=== PATIENT | female | born 1990 | race Caucasian/White ===

== ENCOUNTER 2017-01-23 15:44 | Emergency (ER) | payer MEDICAID ==
[~2017-01-23] VITALS: Ht 160 cm; Wt 74.0 kg
[2017-01-23 15:51] VITALS: Ht 160 cm; Wt 74.0 kg
[2017-01-23] MEDS ORDERED: ONDANSETRON (ODT) 4 MG TAB ODT STA (16:03)
[2017-01-23 16:23] LABS: URINE BLOOD (Dip) POC Trace-lysed (NEGATIVE)
[2017-01-23 16:26] LABS: BASOPHIL # 0.1 10^3/ul (0.0-0.1); BASOPHILS % 0.6 % (0.0-2.0); EOSINOPHILS # 0.1 10^3/ul (0.0-0.5); EOSINOPHILS % 1.8 % (0.0-7.0); HEMATOCRIT 36.8 % (37.0-47.0); HEMOGLOBIN 12.1 g/dl (12.0-16.0); LYMPHOCYTES # 2.7 10^3/ul (0.8-2.9); LYMPHOCYTES % 33.8 % (15.0-51.0); MEAN CORPUSCULAR HEMOGLOBIN 30.2 pg (29.0-33.0); MEAN CORPUSCULAR HGB CONC 32.9 g/dl (32.0-37.0); MEAN CORPUSCULAR VOLUME 91.8 fl (82.0-101.0); MEAN PLATELET VOLUME 10.2 fl (7.4-10.4); MONOCYTE # 0.7 10^3/ul (0.3-0.9); MONOCYTES % 8.2 % (0.0-11.0); NEUTROPHIL # 4.4 10^3/ul (1.6-7.5); NEUTROPHILS % 55.3 % (39.0-77.0); PLATELET COUNT 208 10^3/UL (140-415); RED BLOOD COUNT 4.01 10^6/ul (4.20-5.40); RED CELL DISTRIBUTION WIDTH 12.7 % (11.5-14.5)
[2017-01-23] MEDS ORDERED: HYDROCODONE/APAP (5/325) TAB PO ONE (16:30)
--- NOTE | 2017-01-23 16:40 | RADRPT ---
PROCEDURE: US Pelvis. CLINICAL INDICATION: pelvic pain TECHNIQUE: Multiple sonographic images of the pelvis were obtained utilizing a transabdominal andres hnique. The images were reviewed on a PACS workstation. COMPARISON: None. FINDINGS: The uterus is normal in size with a normal appearance of the myometrium. The uterus measures 9.4 x 5.5 x 7.2 cm. The endometrial stripe is homogeneous in appearance and has the thickness of 11 mm. The ovaries are normal in size and echogenicity. Normal Doppler flow is identified in both ovaries. The right ovary measures 3.6 x 2.4 x 3.3 cm. The left ovary measures 3.8 x 2.1 x 2.5 cm. No free fluid is present within the pelvis. RPTAT: AA IMPRESSION: Unremarkable pelvic ultrasound. .Charles Perla MD, MD Date Time Electronically viewed and signed by .Charles Perla MD, MD on 01/23/2017 16:39 .S/
[2017-01-23 16:46] LABS: ALBUMIN 4.5 g/dl (3.3-4.9); ALBUMIN/GLOBULIN RATIO 1.36; BILIRUBIN,INDIRECT 0.1 mg/dl (0-1.1); BILIRUBIN,TOTAL 0.1 mg/dl (0.2-1.3); CALCIUM 9.6 mg/dl (8.4-10.2); CREATININE 0.63 mg/dl (0.44-1.00); TOTAL PROTEIN 7.8 g/dl (6.1-8.1)
--- NOTE | 2017-01-23 16:51 | ERD ---
ER Documentation Chief Complaint Date/Time DATE: 01/23/17 TIME: 16:49 Chief Complaint lower abdominal pain x 3 days HPI This a 26-year-old female who presents emergency department today complaining of lower abdominal pain, dysuria and left-sided body pain. States she has taken Tylenol for the pain. States she has some nausea. Denies any fevers or chills. ROS All systems reviewed and are negative except as per history of present illness. Medications Home Meds Active Scripts Naproxen* (Naprosyn*) 500 Mg Tablet, 500 MG PO BID Y for PAIN AND/OR INFLAMMATION, #30 TAB Prov:FELY REDMAN-C 01/23/17 Ondansetron Hcl* (Zofran*) 4 Mg Tablet, 4 MG PO Q6H for NAUSEA AND/OR VOMITING, #30 TAB Prov:FELY REDMAN-C 01/23/17 Tramadol HCl (Tramadol HCl) 50 Mg Tablet, 50 MG PO Q4 Y for PAIN, #20 TAB Prov:FELY REDMAN-C 01/23/17 Doxycycline Hyclate* (Doxycycline Hyclate*) 100 Mg Tablet.dr, 100 MG PO BID for 14 Days, TAB Prov:FELY REDMAN-C 01/23/17 Allergies Allergies: Coded Allergies: No Known Allergy (Unverified , 06/08/14) PMhx/Soc Medical and Surgical Hx: pt denies Medical Hx, pt denies Surgical Hx Hx Alcohol Use: No Hx Substance Use: No Hx Tobacco Use: No Smoking Status: Never smoker Physical Exam Vitals Vital Signs Date Time Temp Pulse Resp B/P Pulse Ox O2 Delivery O2 Flow Rate FiO2 01/23/17 15:51 97.8 85 18 114/56 98 Physical Exam Const: No acute distress Head: Atraumatic Eyes: Normal Conjunctiva ENT: Normal External Ears, Nose and Mouth. Neck: Full range of motion..~ No meningismus. Resp: Clear to auscultation bilaterally Cardio: Regular rate and rhythm, no murmurs Abd: Soft, mild pelvic tenderness non distended. Normal bowel sounds. No tenderness McBurney's pelvic exam with no abnormal discharge. Tenderness with bimanual exam over left side. No specific cervical motion tenderness Skin: No petechiae or rashes Back: No midline or flank tenderness Ext: No cyanosis, or edema Neur: Awake and alert Psych: Normal Mood and Affect Result Diagram: 01/23/17 1620 01/23/17 1620 Results 24 hrs Laboratory Tests Test 01/23/17 16:20 01/23/17 16:29 White Blood Count 8.010^3/ul Red Blood Count 4.0110^6/ul Hemoglobin 12.1g/dl Hematocrit 36.8% Mean Corpuscular Volume 91.8fl Mean Corpuscular Hemoglobin 30.2pg Mean Corpuscular Hemoglobin Concent 32.9g/dl Red Cell Distribution Width 12.7% Platelet Count 79519^3/UL Mean Platelet Volume 10.2fl Neutrophils % 55.3% Lymphocytes % 33.8% Monocytes % 8.2% Eosinophils % 1.8% Basophils % 0.6% Nucleated Red Blood Cells % 0.0/100WBC Neutrophils # 4.410^3/ul Lymphocytes # 2.710^3/ul Monocytes # 0.710^3/ul Eosinophils # 0.110^3/ul Basophils # 0.110^3/ul Nucleated Red Blood Cells # 0.010^3/ul Sodium Level 140mmol/L Potassium Level 4.0mmol/L Chloride Level 101mmol/L Carbon Dioxide Level 27mmol/L Anion Gap 16 Blood Urea Nitrogen 11mg/dl Creatinine 0.63mg/dl Glucose Level 85mg/dl Calcium Level 9.6mg/dl Total Bilirubin 0.1mg/dl Direct Bilirubin 0.00mg/dl Indirect Bilirubin 0.1mg/dl Aspartate Amino Transf (AST/SGOT) 18IU/L Alanine Aminotransferase (ALT/SGPT) 20IU/L Alkaline Phosphatase 62IU/L Total Protein 7.8g/dl Albumin 4.5g/dl Globulin 3.30g/dl Albumin/Globulin Ratio 1.36 Lipase 84U/L Bedside Urine pH (LAB) 6.0 Bedside Urine Protein (LAB) Negative Bedside Urine Glucose (UA) Negative Bedside Urine Ketones (LAB) Negative Bedside Urine Blood Trace-lysed Bedside Urine Nitrite (LAB) Negative Bedside Urine Leukocyte Esterase (L Negative Current Medications Medications (Trade) Dose Ordered Sig/Jessica Route PRN Reason Start Time Stop Time Status Last Admin Dose Admin Acetaminophen/ Hydrocodone Bitart (Stewart (5/325)) 1 tab ONCE ONCE PO 01/23/17 16:30 01/23/17 16:31 DC 01/23/17 16:15 Ondansetron HCl (Zofran Odt) 4 mg ONCE STAT ODT 01/23/17 16:03 01/23/17 16:06 DC 01/23/17 16:15 Azithromycin (Zithromax) 1,000 mg ONCE ONCE PO 01/23/17 18:00 01/23/17 18:01 Ceftriaxone Sodium (Rocephin) 250 mg ONCE ONCE IM 01/23/17 18:00 01/23/17 18:01 Lidocaine (Xylocaine 1% (Mdv) 20 ml) 20 ml ONCE ONCE SC 01/23/17 18:00 01/23/17 18:01 DIAGNOSTIC IMAGING REPORT Patient: AISLINN HARDIN : 1990 Age: 26 Sex: F MR #: [id number] DOS: 01/23/17 0000 Ordering MD: FELY REDMAN PA-C Location: [facility] Room/Bed: PROCEDURE: US Pelvis. CLINICAL INDICATION: pelvic pain TECHNIQUE: Multiple sonographic images of the pelvis were obtained utilizing a transabdominal technique. The images were reviewed on a PACS workstation. COMPARISON: None. FINDINGS: The uterus is normal in size with a normal appearance of the myometrium. The uterus measures 9.4 x 5.5 x 7.2 cm. The endometrial stripe is homogeneous in appearance and has the thickness of 11 mm. The ovaries are normal in size and echogenicity. Normal Doppler flow is identified in both ovaries. The right ovary measures 3.6 x 2.4 x 3.3 cm. The left ovary measures 3.8 x 2.1 x 2.5 cm. No free fluid is present within the pelvis. RPTAT: AA IMPRESSION: Unremarkable pelvic ultrasound. .Charles Perla MD, Date Time Electronically viewed and signed by .Charles Perla MD, MD on 01/23/2017 16: 39 .S/ CC: FELY REDMAN PA-C Procedures/MDM This is a 26year-old female who presents to the emergency department today complaining of lower abdominal pain for the past 3 days and left-sided body pain. I did obtain laboratory workup as well as a pelvic ultrasound Laboratory workup shows no elevated white blood cell count. She is not anemic. Platelets are within normal limits. Electro lites are within normal limits. Glucose within normal limits. Liver enzymes are within normal limits. Lipase within normal limits. UA is negative for infection. I did send the urine for gonorrhea and chlamydia. test is negative Ultrasound is unremarkable. There is normal Doppler flow identified in both ovaries. There is no free fluid present. Patient given Stewart, Zofran here in the emergency department reported pain improved. I did do a vaginal exam on the patient and patient did have some tenderness on the left side with a bimanual exam and therefore I will treat her prophylactically for PID. Patient was given Rocephin and azithromycin in the emergency department. She was discharged home with doxycycline in addition to tramadol and Naprosyn and Zofran. Patient symptoms at this time is consistent with pelvic pain of uncertain etiology however may be due to PID. Low suspicion for acute surgical abdomen, ectopic , to ovarian abscess, ovarian torsion. At this time the patient is stable for discharge and outpatient management. Patient should follow up with their PCP in the next 1-2 days. They may return to the emergency department sooner for any persistent or worsening of symptoms. Patient understood and agreed with the plan. Departure Diagnosis: Primary Impression: Pelvic pain Condition: Fair FELY REDMAN PA-C Jan 23, 2017 16:51
[2017-01-23] MEDS ORDERED: DOXY100T20 PO (17:45)
[2017-01-23] MEDS ORDERED: ONDA4TAB8 PO (17:46)
[2017-01-23] MEDS ORDERED: TRAM50TA2 PO (17:46)
[2017-01-23] MEDS ORDERED: NAPR-260 PO (17:46)
[2017-01-23] MEDS ORDERED: CEFTRIAXONE 250 MG INJ IM ONE (18:00)
[2017-01-23] MEDS ORDERED: AZITHROMYCIN 250 MG TAB PO ONE (18:00)
[2017-01-23] MEDS ORDERED: LIDOCAINE 1% (MDV) 20 ML INJ SC ONE (18:00)
[2017-01-27 16:10] LABS: URINE BLOOD (Dip) POC Trace-lysed (NEGATIVE)
== END 2017-01-23 17:58 | disposition home or self-care (01) ==
LOC: FTE 15:44
DX: R10.2 Pelvic and perineal pain (principal); R11.0 Nausea
CPT/HCPCS: 36415; 76856; 80053; 81003; 83690; 85025; 87591; 96372; Z7502; J0696